=== PATIENT | female | born 1955 | race Caucasian/White ===

== ENCOUNTER → 2023-05-30 | Outpatient (CLI) | payer MEDICARE, OTHER ==
[~2023-05-30] MED LIST: ISOVUE-370 76% 100ML VIAL As Ordered ONE
== END ==
LOC: M RAD 07:52
PROVIDERS: ATTEND Urology
DX: C67.8 Malignant neoplasm of overlapping sites of bladder (principal); J44.9 Chronic obstructive pulmonary disease, unspecified; K76.0 Fatty (change of) liver, not elsewhere classified
CPT/HCPCS: 71260; Q9967

== ENCOUNTER 2023-07-29 06:06 | Inpatient (IN) | payer MEDICARE, OTHER ==
[2023-07-29] VITALS (16 sets, daily range): BP systolic 98–108; BP diastolic 62–71; TEMP 96.6–97.7; O2SAT 3–93
[~2023-07-29] VITALS: Ht 167.6 cm; Wt 106.2 kg
[~2023-07-29 06:06] MED LIST changes: +ADV100INH INH; +ALBU6.7H6 INH; +B-12100010 PO; +HEPARIN SOD (PORCINE) 5000UNITS/ML 1ML VIAL/SYRINGE SQ ONE; -ISOVUE-370 76% 100ML VIAL As Ordered ONE; +MULT-90 PO; +SUDA240T2 PO; +VITA500C24 PO; +ceFAZolin SOD 2 GM in IV 1 EA IV ONE; +metroNIDAZOLE 500 MG in IV 1 EA IV ONE
[2023-07-29] MEDS ORDERED: HOME MED LIST COMPLETE! XX SCH (06:45)
[2023-07-29] MEDS ORDERED: dexmedeTOMIDine (4MCG/ML)200MCG/50ML BTL (PRECEDEX) As Ordered ONE (07:31)
[2023-07-29] MEDS ORDERED: LIDOCAINE 2% 100MG/5ML SDV (FOR ANES.) As Ordered ONE (07:31)
[2023-07-29] MEDS ORDERED: propofoL 200 MG/20 ML VIAL As Ordered ONE (07:31)
[2023-07-29] MEDS ORDERED: ONDANSETRON 4MG 2ML VIAL As Ordered ONE (07:31)
[2023-07-29] MEDS ORDERED: ROCURONIUM BROMIDE 50MG/5ML VIAL As Ordered ONE ×4 (07:31→11:04)
[2023-07-29] MEDS ORDERED: fentaNYL 250 MCG/5 ML INJECTION As Ordered ONE (07:32)
[2023-07-29] MEDS ORDERED: MIDAZOLAM INJ 2MG/2ML VIAL As Ordered ONE (07:35)
[2023-07-29] MEDS ORDERED: LACRILUBE (AKWA TEARS) OPHTH OINT 3.5GM As Ordered ONE (08:00)
[2023-07-29] MEDS ORDERED: HYDROmorphone HCL 2MG/ML 1ML VIAL As Ordered ONE (09:21)
[2023-07-29] MEDS ORDERED: SUGAMMADEX SODIUM 500 MG/5 ML VIAL (BRIDION) As Ordered ONE (09:21)
[2023-07-29] MEDS ORDERED: ePHEDrine SULFATE 25 MG/5 ML(5MG/ML) SYRINGE As Ordered ONE (09:54)
[2023-07-29] MEDS ORDERED: PHENYLephrine 500MCG 5ML (100MCG/ML) SYRINGE As Ordered ONE ×2 (09:54→10:41)
[2023-07-29] MEDS ORDERED: ALBUTEROL 6.7GM INHALER **FOR ANES. CART/OMNICELL ONLY As Ordered ONE (10:56)
[2023-07-29] MEDS ORDERED: LIDOCAINE 5% OINT 30GM TUBE As Ordered ONE (11:55)
[2023-07-29] MEDS ORDERED: ceFAZolin 2 GM/D5W 50 ML IV BAG As Ordered ONE (12:07)
[2023-07-29] MEDS ORDERED: fentaNYL 100 MCG/2 ML INJECTION IV PRN (12:15)
[2023-07-29] MEDS ORDERED: ONDANSETRON 4MG 2ML VIAL IV PRN (12:15)
[2023-07-29] MEDS ORDERED: HYDROMORPHONE HCL 0.5 MG/ 0.5 ML SYRINGE IV PRN (12:15)
[2023-07-29] MEDS ORDERED: LR 1,000 ML IV SCH (12:15)
[2023-07-29] MEDS ORDERED: oxyCODONE 5MG TAB PO PRN (12:15)
[2023-07-29] MEDS ORDERED: METOCLOPRAMIDE INJ 10MG/2ML VIAL IV PRN (12:15)
[2023-07-29] MEDS ORDERED: D5W/0.45% SODIUM CHLORIDE 1,000 ML IV SCH (13:10)
[2023-07-29 13:57] LABS: HEMATOCRIT 46.6 % (36.0-47.0); MEAN CORPUSCULAR HEMOGLOBIN 31.3 pg (27.0-33.0); MEAN CORPUSCULAR HGB CONC 32.2 g/dl (32.0-36.5); MEAN CORPUSCULAR VOLUME 97.3 fl (80.0-96.0); PLATELET COUNT, AUTOMATED 284 10^3/uL (150-450); RED BLOOD COUNT 4.79 10^6/uL (4.00-5.40); WHITE BLOOD COUNT 15.7 10^3/uL (4.0-10.0)
[2023-07-29] MEDS: HEPARIN SOD (PORCINE) 5000UNITS/ML 1ML VIAL/SYRINGE SQ SCH ×2 (14:00→22:00)
[2023-07-29] MEDS ORDERED: PHENYLEPHRINE 10MG/ML 1ML VIAL IV STA (14:09)
[2023-07-29 14:12] LABS: ALBUMIN 2.7 G/DL (3.2-5.2); ALKALINE PHOSPHATASE 57 U/L (46-116); ALT/SGPT 19 U/L (7.0-40); AST/SGOT 20 U/L (<34); BILIRUBIN,TOTAL 0.4 MG/DL (0.3-1.2); BLOOD UREA NITROGEN 15 MG/DL (9-23); CARBON DIOXIDE LEVEL 26 MMOL/L (20-31); CHLORIDE LEVEL 105 MMOL/L (98-107); GLOMERULAR FILTRATION RATE > 60.0 (>45); GLUCOSE, FASTING 181 MG/DL (74-106); POTASSIUM SERUM 4.5 MMOL/L (3.5-5.1); SODIUM LEVEL 137 MMOL/L (136-145); TOTAL PROTEIN 5.6 G/DL (5.7-8.2)
[2023-07-29] MEDS ORDERED: ACETAMINOPHEN TAB 650MG DOSE (2X325MG) PO PRN (15:30)
[2023-07-29] MEDS ORDERED: NS 1,000 ML IV ONE ×2 (16:00→17:35)
[2023-07-29] MEDS: MIDODRINE 5 MG TAB PO SCH (16:13)
[2023-07-29] MEDS: ceFAZolin SOD 2 GM in IV 1 EA IV SCH ×2 (16:14→23:39)
[2023-07-29] MEDS: NORCO, ANEXSIA 5/325MG TABLET (HYDROcodone/ACETAMINOPHEN) PO PRN ×2 (16:15→22:22)
[2023-07-29] MEDS ORDERED: NS 1,000 ML IV SCH (17:00)
[2023-07-29 18:14] LABS: HEMATOCRIT 46.1 % (36.0-47.0); HEMOGLOBIN 14.8 g/dl (12.0-15.5); MEAN CORPUSCULAR HEMOGLOBIN 31.6 pg (27.0-33.0); MEAN CORPUSCULAR HGB CONC 32.1 g/dl (32.0-36.5); MEAN CORPUSCULAR VOLUME 98.3 fl (80.0-96.0); PLATELET COUNT, AUTOMATED 223 10^3/uL (150-450); RED BLOOD COUNT 4.69 10^6/uL (4.00-5.40); WHITE BLOOD COUNT 17.7 10^3/uL (4.0-10.0)
[2023-07-29 18:39] LABS: ALBUMIN 2.8 G/DL (3.2-5.2); ALKALINE PHOSPHATASE 53 U/L (46-116); ALT/SGPT 19 U/L (7.0-40); AST/SGOT 20 U/L (<34); BILIRUBIN,TOTAL 0.5 MG/DL (0.3-1.2); BLOOD UREA NITROGEN 14 MG/DL (9-23); CARBON DIOXIDE LEVEL 23 MMOL/L (20-31); CHLORIDE LEVEL 108 MMOL/L (98-107); CREATININE FOR GFR 0.75 MG/DL (0.55-1.30); GLOMERULAR FILTRATION RATE > 60.0 (>45); GLUCOSE, FASTING 173 MG/DL (74-106); POTASSIUM SERUM 5.1 MMOL/L (3.5-5.1); SODIUM LEVEL 138 MMOL/L (136-145); TOTAL PROTEIN 5.7 G/DL (5.7-8.2)
[2023-07-29] MEDS: D5W/0.45% SODIUM CHLORIDE 1,000 ML IV SCH (20:00)
[2023-07-29] MEDS ORDERED: SENOKOT S TAB PO SCH (21:00)
[2023-07-30] VITALS (27 sets, daily range): BP systolic 101–118; BP diastolic 59–72; TEMP 96.9–98.3; O2SAT 4–97
[2023-07-30 00:18] LABS: HEMATOCRIT 41.6 % (36.0-47.0); HEMOGLOBIN 13.6 g/dl (12.0-15.5)
[2023-07-30] MEDS: D5W/0.45% SODIUM CHLORIDE 1,000 ML IV SCH ×2 (04:48→14:38)
[2023-07-30] MEDS: NORCO, ANEXSIA 5/325MG TABLET (HYDROcodone/ACETAMINOPHEN) PO PRN (04:50)
[2023-07-30] MEDS: HEPARIN SOD (PORCINE) 5000UNITS/ML 1ML VIAL/SYRINGE SQ SCH ×3 (06:00→20:18)
[2023-07-30 06:36] LABS: BASO % 0.2 % (0.0-1.0); HEMATOCRIT 40.4 % (36.0-47.0); LYMPH # 1.2 10^3/uL (1.5-5.0); LYMPH % 10.2 % (24.0-44.0); MEAN CORPUSCULAR HEMOGLOBIN 31.4 pg (27.0-33.0); MEAN CORPUSCULAR HGB CONC 32.2 g/dl (32.0-36.5); MEAN CORPUSCULAR VOLUME 97.6 fl (80.0-96.0); MONO % 8.8 % (2.0-8.0); NEUTROPHILS # 9.3 10^3/uL (1.5-8.5); NEUTROPHILS % 80.5 % (36.0-66.0); PLATELET COUNT, AUTOMATED 233 10^3/uL (150-450); RED BLOOD COUNT 4.14 10^6/uL (4.00-5.40); WHITE BLOOD COUNT 11.6 10^3/uL (4.0-10.0)
[2023-07-30 07:04] LABS: ALBUMIN 2.5 G/DL (3.2-5.2); ALKALINE PHOSPHATASE 46 U/L (46-116); ALT/SGPT 13 U/L (7.0-40); AST/SGOT 18 U/L (<34); BILIRUBIN,TOTAL 0.4 MG/DL (0.3-1.2); BLOOD UREA NITROGEN 17 MG/DL (9-23); CALCIUM LEVEL 7.5 MG/DL (8.3-10.6); CARBON DIOXIDE LEVEL 25 MMOL/L (20-31); CHLORIDE LEVEL 106 MMOL/L (98-107); CREATININE FOR GFR 0.98 MG/DL (0.55-1.30); GLOMERULAR FILTRATION RATE > 60.0 (>45); GLUCOSE, FASTING 148 MG/DL (74-106); POTASSIUM SERUM 5.1 MMOL/L (3.5-5.1); SODIUM LEVEL 138 MMOL/L (136-145); TOTAL PROTEIN 5.2 G/DL (5.7-8.2)
[2023-07-30] MEDS: MIDODRINE 5 MG TAB PO SCH ×3 (08:00→16:00)
[2023-07-30] MEDS: ADVAIR HFA 45/21MCG INHALER INH SCH ×2 (08:08→20:00)
[2023-07-30] MEDS ORDERED: MIRALAX *UNIT DOSE* 17GM PACKET PO SCH (09:00)
[2023-07-30] MEDS: ceFAZolin SOD 2 GM in IV 1 EA IV SCH ×2 (09:21→16:37)
[2023-07-30] MEDS: ALBUTEROL 90 MCG/ACT 8GM HFA INHALER INH PRN (11:49)
[2023-07-30] MEDS: BISACODYL 5MG TAB PO SCH (14:17)
[2023-07-30] MEDS: CHLORASEPTIC SPRAY MT PRN ×2 (14:17→20:19)
[2023-07-30] MEDS: MORPHINE 2 MG/ML 1ML VIAL IV PRN (17:39)
[2023-07-30] MEDS: DOCUSATE SODIUM 100MG CAPSULE PO SCH (20:18)
[2023-07-31] VITALS (28 sets, daily range): BP systolic 112–135; BP diastolic 65–80; TEMP 97.3–98.3; O2SAT 4–97
[2023-07-31] MEDS: ceFAZolin SOD 2 GM in IV 1 EA IV SCH ×2 (00:14→08:02)
[2023-07-31] MEDS: D5W/0.45% SODIUM CHLORIDE 1,000 ML IV SCH ×2 (03:41→14:21)
[2023-07-31 04:44] LABS: BASO % 0.2 % (0.0-1.0); EOS # 0.2 10^3/uL (0.0-0.5); EOS % 1.2 % (0.0-3.0); HEMATOCRIT 36.2 % (36.0-47.0); HEMOGLOBIN 11.6 g/dl (12.0-15.5); LYMPH # 0.9 10^3/uL (1.5-5.0); LYMPH % 7.7 % (24.0-44.0); MEAN CORPUSCULAR HEMOGLOBIN 30.9 pg (27.0-33.0); MEAN CORPUSCULAR VOLUME 96.3 fl (80.0-96.0); MONO # 0.9 10^3/uL (0.0-0.8); NEUTROPHILS # 10.2 10^3/uL (1.5-8.5); NEUTROPHILS % 83.6 % (36.0-66.0); PLATELET COUNT, AUTOMATED 209 10^3/uL (150-450); RED BLOOD COUNT 3.76 10^6/uL (4.00-5.40); WHITE BLOOD COUNT 12.2 10^3/uL (4.0-10.0)
[2023-07-31 05:10] LABS: CALCIUM LEVEL 7.6 MG/DL (8.3-10.6); CREATININE FOR GFR 1.32 MG/DL (0.55-1.30); GLOMERULAR FILTRATION RATE 42.7 (>45); POTASSIUM SERUM 4.5 MMOL/L (3.5-5.1)
[2023-07-31] MEDS ORDERED: NS 500 ML IV ONE (06:55)
[2023-07-31] MEDS: ADVAIR HFA 45/21MCG INHALER INH SCH ×2 (07:54→19:21)
[2023-07-31] MEDS: HEPARIN SOD (PORCINE) 5000UNITS/ML 1ML VIAL/SYRINGE SQ SCH ×2 (08:03→21:12)
[2023-07-31] MEDS: DOCUSATE SODIUM 100MG CAPSULE PO SCH ×2 (08:03→21:11)
[2023-07-31] MEDS: BISACODYL 5MG TAB PO SCH (08:03)
[2023-07-31] MEDS: NORCO, ANEXSIA 5/325MG TABLET (HYDROcodone/ACETAMINOPHEN) PO PRN ×3 (09:08→23:35)
[2023-07-31] MEDS: ALBUTEROL SULFATE 2.5MG/0.5ML INH NEB SOLN NEB SCH ×2 (16:00→19:21)
[2023-07-31] MEDS: CHLORASEPTIC SPRAY MT PRN ×2 (16:58→23:35)
[2023-07-31] MEDS: ONDANSETRON 4MG 2ML VIAL IV PRN (23:34)
[2023-08-01] VITALS (26 sets, daily range): BP systolic 111–124; BP diastolic 63–84; TEMP 97.4–98.8; O2SAT 90–95
[2023-08-01 05:48] LABS: BASO % 0.3 % (0.0-1.0); EOS # 0.3 10^3/uL (0.0-0.5); EOS % 3.1 % (0.0-3.0); HEMATOCRIT 35.9 % (36.0-47.0); HEMOGLOBIN 11.4 g/dl (12.0-15.5); LYMPH # 0.9 10^3/uL (1.5-5.0); LYMPH % 8.1 % (24.0-44.0); MEAN CORPUSCULAR HEMOGLOBIN 31.2 pg (27.0-33.0); MEAN CORPUSCULAR HGB CONC 31.8 g/dl (32.0-36.5); MEAN CORPUSCULAR VOLUME 98.4 fl (80.0-96.0); MONO # 0.7 10^3/uL (0.0-0.8); MONO % 6.8 % (2.0-8.0); NEUTROPHILS # 8.7 10^3/uL (1.5-8.5); NEUTROPHILS % 81.4 % (36.0-66.0); PLATELET COUNT, AUTOMATED 230 10^3/uL (150-450); RED BLOOD COUNT 3.65 10^6/uL (4.00-5.40); WHITE BLOOD COUNT 10.7 10^3/uL (4.0-10.0)
[2023-08-01 05:49] LABS: BLOOD UREA NITROGEN 18 MG/DL (9-23); CALCIUM LEVEL 7.9 MG/DL (8.3-10.6); CARBON DIOXIDE LEVEL 33 MMOL/L (20-31); CHLORIDE LEVEL 100 MMOL/L (98-107); CREATININE FOR GFR 0.78 MG/DL (0.55-1.30); GLOMERULAR FILTRATION RATE > 60.0 (>45); GLUCOSE, FASTING 122 MG/DL (74-106); POTASSIUM SERUM 4.3 MMOL/L (3.5-5.1); SODIUM LEVEL 138 MMOL/L (136-145)
[2023-08-01] MEDS: D5W/0.45% SODIUM CHLORIDE 1,000 ML IV SCH (05:55)
[2023-08-01] MEDS: ALBUTEROL SULFATE 2.5MG/0.5ML INH NEB SOLN NEB SCH ×2 (08:39→16:00)
[2023-08-01] MEDS: ADVAIR HFA 45/21MCG INHALER INH SCH ×2 (08:39→21:06)
[2023-08-01] MEDS: ONDANSETRON 4MG 2ML VIAL IV PRN (08:58)
[2023-08-01] MEDS ORDERED: GLUCAGON INJ 1MG VIAL SC PRN (09:10)
[2023-08-01] MEDS ORDERED: DEXTROSE 50% 50ML SYRINGE IV PRN (09:10)
[2023-08-01] MEDS ORDERED: GLUCOSE 4GM CHEW TABLET PO PRN (09:10)
[2023-08-01] MEDS: MORPHINE 2 MG/ML 1ML VIAL IV PRN ×3 (09:18→22:29)
[2023-08-01] MEDS: PANTOPRAZOLE 40MG VIAL IV SCH ×2 (09:49→20:02)
[2023-08-01] MEDS: LR 1,000 ML IV SCH ×3 (09:50→23:35)
[2023-08-01] MEDS: DOCUSATE SODIUM 100MG CAPSULE PO SCH ×2 (09:50→20:03)
[2023-08-01] MEDS: CHLORASEPTIC SPRAY MT PRN (12:09)
[2023-08-01] MEDS: BISACODYL 10MG SUPP PR SCH (16:26)
[2023-08-01] MEDS: ALBUTEROL 90 MCG/ACT 8GM HFA INHALER INH PRN (16:31)
[2023-08-01 16:38] LABS: HEMATOCRIT 34.5 % (36.0-47.0); HEMOGLOBIN 11.2 g/dl (12.0-15.5); MEAN CORPUSCULAR HEMOGLOBIN 31.7 pg (27.0-33.0); MEAN CORPUSCULAR HGB CONC 32.5 g/dl (32.0-36.5); MEAN CORPUSCULAR VOLUME 97.7 fl (80.0-96.0); PLATELET COUNT, AUTOMATED 247 10^3/uL (150-450); RED BLOOD COUNT 3.53 10^6/uL (4.00-5.40); WHITE BLOOD COUNT 11.5 10^3/uL (4.0-10.0)
[2023-08-01] MEDS ORDERED: ACETAMINOPHEN 650MG SUPP PR PRN (19:45)
[2023-08-01] MEDS: METOCLOPRAMIDE INJ 10MG/2ML VIAL IV SCH (20:02)
[2023-08-02] VITALS (22 sets, daily range): BP systolic 112–124; BP diastolic 66–75; TEMP 97.1–97.9; O2SAT 4–99
[2023-08-02] MEDS: ALBUTEROL SULFATE 2.5MG/0.5ML INH NEB SOLN NEB SCH ×3 (00:52→16:48)
[2023-08-02] MEDS: MORPHINE 2 MG/ML 1ML VIAL IV PRN ×2 (04:06→08:44)
[2023-08-02] MEDS: CHLORASEPTIC SPRAY MT PRN ×2 (04:06→08:37)
[2023-08-02 05:18] LABS: BASO % 0.2 % (0.0-1.0); EOS # 0.4 10^3/uL (0.0-0.5); EOS % 3.7 % (0.0-3.0); HEMATOCRIT 32.5 % (36.0-47.0); HEMOGLOBIN 10.6 g/dl (12.0-15.5); MEAN CORPUSCULAR HEMOGLOBIN 32.2 pg (27.0-33.0); MEAN CORPUSCULAR HGB CONC 32.6 g/dl (32.0-36.5); MEAN CORPUSCULAR VOLUME 98.8 fl (80.0-96.0); MONO # 0.9 10^3/uL (0.0-0.8); MONO % 7.9 % (2.0-8.0); NEUTROPHILS # 8.9 10^3/uL (1.5-8.5); NEUTROPHILS % 78.9 % (36.0-66.0); PLATELET COUNT, AUTOMATED 228 10^3/uL (150-450); RED BLOOD COUNT 3.29 10^6/uL (4.00-5.40); WHITE BLOOD COUNT 11.2 10^3/uL (4.0-10.0)
[2023-08-02 05:31] LABS: BLOOD UREA NITROGEN 18 MG/DL (9-23); CALCIUM LEVEL 8.1 MG/DL (8.3-10.6); CARBON DIOXIDE LEVEL 33 MMOL/L (20-31); CHLORIDE LEVEL 100 MMOL/L (98-107); CREATININE FOR GFR 0.92 MG/DL (0.55-1.30); GLOMERULAR FILTRATION RATE > 60.0 (>45); GLUCOSE, FASTING 98 MG/DL (74-106); POTASSIUM SERUM 4.2 MMOL/L (3.5-5.1); SODIUM LEVEL 138 MMOL/L (136-145)
[2023-08-02] MEDS: LR 1,000 ML IV SCH ×3 (06:42→18:26)
[2023-08-02] MEDS: BISACODYL 10MG SUPP PR SCH (08:36)
[2023-08-02] MEDS: PANTOPRAZOLE 40MG VIAL IV SCH ×2 (08:36→21:00)
[2023-08-02] MEDS: DOCUSATE SODIUM 100MG CAPSULE PO SCH ×2 (08:36→21:00)
[2023-08-02] MEDS: METOCLOPRAMIDE INJ 10MG/2ML VIAL IV SCH ×2 (08:36→21:01)
[2023-08-02] MEDS: ADVAIR HFA 45/21MCG INHALER INH SCH ×2 (08:54→21:44)
[2023-08-02] MEDS: NORCO, ANEXSIA 5/325MG TABLET (HYDROcodone/ACETAMINOPHEN) PO PRN (21:00)
[2023-08-03] VITALS (12 sets, daily range): BP systolic 108–130; BP diastolic 66–80; TEMP 97.8–98.8; O2SAT 90–98
[2023-08-03] MEDS: LR 1,000 ML IV SCH (05:17)
[2023-08-03 07:14] LABS: BASO % 0.3 % (0.0-1.0); EOS # 0.6 10^3/uL (0.0-0.5); EOS % 6.6 % (0.0-3.0); HEMATOCRIT 32.9 % (36.0-47.0); HEMOGLOBIN 10.3 g/dl (12.0-15.5); LYMPH # 1.2 10^3/uL (1.5-5.0); LYMPH % 12.2 % (24.0-44.0); MEAN CORPUSCULAR HEMOGLOBIN 30.8 pg (27.0-33.0); MEAN CORPUSCULAR HGB CONC 31.3 g/dl (32.0-36.5); MEAN CORPUSCULAR VOLUME 98.5 fl (80.0-96.0); MONO # 0.9 10^3/uL (0.0-0.8); MONO % 9.8 % (2.0-8.0); NEUTROPHILS # 6.8 10^3/uL (1.5-8.5); NEUTROPHILS % 70.8 % (36.0-66.0); PLATELET COUNT, AUTOMATED 263 10^3/uL (150-450); RED BLOOD COUNT 3.34 10^6/uL (4.00-5.40); WHITE BLOOD COUNT 9.6 10^3/uL (4.0-10.0)
[2023-08-03 07:34] LABS: BLOOD UREA NITROGEN 13 MG/DL (9-23); CALCIUM LEVEL 8.3 MG/DL (8.3-10.6); CARBON DIOXIDE LEVEL 32 MMOL/L (20-31); CHLORIDE LEVEL 100 MMOL/L (98-107); CREATININE FOR GFR 0.57 MG/DL (0.55-1.30); GLOMERULAR FILTRATION RATE > 60.0 (>45); GLUCOSE, FASTING 101 MG/DL (74-106); SODIUM LEVEL 138 MMOL/L (136-145)
[2023-08-03] MEDS: ALBUTEROL SULFATE 2.5MG/0.5ML INH NEB SOLN NEB SCH ×3 (08:00→15:33)
[2023-08-03] MEDS: DOCUSATE SODIUM 100MG CAPSULE PO SCH ×2 (09:27→20:26)
[2023-08-03] MEDS: METOCLOPRAMIDE INJ 10MG/2ML VIAL IV SCH ×2 (09:27→20:26)
[2023-08-03] MEDS: PANTOPRAZOLE 40MG VIAL IV SCH ×2 (09:27→20:27)
[2023-08-03] MEDS: BISACODYL 10MG SUPP PR SCH (09:27)
[2023-08-03] MEDS: NORCO, ANEXSIA 5/325MG TABLET (HYDROcodone/ACETAMINOPHEN) PO PRN ×2 (09:32→20:27)
[2023-08-03] MEDS: ADVAIR HFA 45/21MCG INHALER INH SCH ×2 (09:37→21:16)
[2023-08-03] MEDS: ALBUTEROL 90 MCG/ACT 8GM HFA INHALER INH PRN (15:32)
[2023-08-04 06:00] VITALS: BP 112/65; TEMP 97.5; O2SAT 94
[2023-08-04 07:20] LABS: BASO % 0.4 % (0.0-1.0); EOS # 0.6 10^3/uL (0.0-0.5); HEMATOCRIT 34.4 % (36.0-47.0); LYMPH # 1.1 10^3/uL (1.5-5.0); LYMPH % 13.4 % (24.0-44.0); MEAN CORPUSCULAR HEMOGLOBIN 31.1 pg (27.0-33.0); MEAN CORPUSCULAR VOLUME 97.2 fl (80.0-96.0); MONO # 0.7 10^3/uL (0.0-0.8); MONO % 8.4 % (2.0-8.0); NEUTROPHILS # 5.5 10^3/uL (1.5-8.5); NEUTROPHILS % 69.4 % (36.0-66.0); PLATELET COUNT, AUTOMATED 308 10^3/uL (150-450); RED BLOOD COUNT 3.54 10^6/uL (4.00-5.40)
[2023-08-04 07:32] LABS: BLOOD UREA NITROGEN 13 MG/DL (9-23); CALCIUM LEVEL 8.4 MG/DL (8.3-10.6); CARBON DIOXIDE LEVEL 31 MMOL/L (20-31); CHLORIDE LEVEL 99 MMOL/L (98-107); CREATININE FOR GFR 0.62 MG/DL (0.55-1.30); GLOMERULAR FILTRATION RATE > 60.0 (>45); GLUCOSE, FASTING 115 MG/DL (74-106); POTASSIUM SERUM 3.9 MMOL/L (3.5-5.1); SODIUM LEVEL 136 MMOL/L (136-145)
[2023-08-04] MEDS: PANTOPRAZOLE 40MG VIAL IV SCH ×2 (07:59→21:24)
[2023-08-04] MEDS: METOCLOPRAMIDE INJ 10MG/2ML VIAL IV SCH ×2 (07:59→21:24)
[2023-08-04] MEDS: BISACODYL 10MG SUPP PR SCH (08:00)
[2023-08-04] MEDS: DOCUSATE SODIUM 100MG CAPSULE PO SCH ×2 (08:00→20:35)
[2023-08-04] MEDS: ALBUTEROL SULFATE 2.5MG/0.5ML INH NEB SOLN NEB SCH ×3 (08:00→14:17)
[2023-08-04 09:06] LABS: CREATININE BF 0.6 MG/DL (NOT ESTABLISHED); SOURCE, BODY FLUID CREATININE PERITONEAL
[2023-08-04] MEDS: ADVAIR HFA 45/21MCG INHALER INH SCH ×2 (11:39→20:08)
[2023-08-04] MEDS ORDERED: ACETAMINOPHEN TAB 650MG DOSE (2X325MG) PO PRN (12:35)
[2023-08-04 14:00] VITALS: BP 121/73; TEMP 97.6; O2SAT 93
[2023-08-04] MEDS: ALBUTEROL 90 MCG/ACT 8GM HFA INHALER INH PRN (14:15)
[2023-08-04] MEDS: NORCO, ANEXSIA 5/325MG TABLET (HYDROcodone/ACETAMINOPHEN) PO PRN (17:44)
[2023-08-04 21:35] VITALS: BP 113/71; TEMP 98.3; O2SAT 91
[2023-08-05 05:37] VITALS: BP 117/71; TEMP 97.8; O2SAT 93
[2023-08-05 06:25] LABS: BASO % 0.4 % (0.0-1.0); EOS # 0.4 10^3/uL (0.0-0.5); EOS % 5.4 % (0.0-3.0); HEMATOCRIT 32.6 % (36.0-47.0); HEMOGLOBIN 10.8 g/dl (12.0-15.5); LYMPH # 0.9 10^3/uL (1.5-5.0); MEAN CORPUSCULAR HEMOGLOBIN 31.7 pg (27.0-33.0); MEAN CORPUSCULAR HGB CONC 33.1 g/dl (32.0-36.5); MEAN CORPUSCULAR VOLUME 95.6 fl (80.0-96.0); MONO # 0.7 10^3/uL (0.0-0.8); MONO % 8.6 % (2.0-8.0); NEUTROPHILS # 5.9 10^3/uL (1.5-8.5); NEUTROPHILS % 74.2 % (36.0-66.0); PLATELET COUNT, AUTOMATED 353 10^3/uL (150-450); RED BLOOD COUNT 3.41 10^6/uL (4.00-5.40); WHITE BLOOD COUNT 7.9 10^3/uL (4.0-10.0)
[2023-08-05 06:54] LABS: BLOOD UREA NITROGEN 14 MG/DL (9-23); CALCIUM LEVEL 8.3 MG/DL (8.3-10.6); CARBON DIOXIDE LEVEL 29 MMOL/L (20-31); CHLORIDE LEVEL 98 MMOL/L (98-107); CREATININE FOR GFR 0.56 MG/DL (0.55-1.30); GLOMERULAR FILTRATION RATE > 60.0 (>45); GLUCOSE, FASTING 103 MG/DL (74-106); POTASSIUM SERUM 4.1 MMOL/L (3.5-5.1); SODIUM LEVEL 134 MMOL/L (136-145)
[2023-08-05] MEDS: DOCUSATE SODIUM 100MG CAPSULE PO SCH ×2 (07:26→19:43)
[2023-08-05] MEDS: BISACODYL 10MG SUPP PR SCH (07:27)
[2023-08-05] MEDS: ALBUTEROL SULFATE 2.5MG/0.5ML INH NEB SOLN NEB SCH ×4 (08:00→23:53)
[2023-08-05] MEDS: METOCLOPRAMIDE INJ 10MG/2ML VIAL IV SCH ×2 (08:19→19:54)
[2023-08-05] MEDS: PANTOPRAZOLE 40MG VIAL IV SCH ×2 (08:19→19:54)
[2023-08-05] MEDS ORDERED: FUROSEMIDE 20MG/2ML VIAL IV ONE ×2 (08:45→15:00)
[2023-08-05] MEDS: NORCO, ANEXSIA 5/325MG TABLET (HYDROcodone/ACETAMINOPHEN) PO PRN ×2 (09:37→18:05)
[2023-08-05] MEDS: ADVAIR HFA 45/21MCG INHALER INH SCH ×2 (09:58→20:23)
[2023-08-05 13:47] VITALS: BP 113/70; TEMP 97.7; O2SAT 93
[2023-08-05] MEDS: ALBUTEROL 90 MCG/ACT 8GM HFA INHALER INH PRN (15:44)
[2023-08-05 20:03] VITALS: BP 111/64; TEMP 97.8; O2SAT 93
[2023-08-06 05:00] VITALS: BP 108/69; TEMP 97.9; O2SAT 94
[2023-08-06] MEDS: ADVAIR HFA 45/21MCG INHALER INH SCH ×2 (07:35→20:59)
[2023-08-06] MEDS: ALBUTEROL SULFATE 2.5MG/0.5ML INH NEB SOLN NEB SCH ×2 (07:37→15:15)
[2023-08-06 07:38] VITALS: O2SAT 92
[2023-08-06] MEDS: DOCUSATE SODIUM 100MG CAPSULE PO SCH ×2 (08:06→20:00)
[2023-08-06] MEDS: BISACODYL 10MG SUPP PR SCH (08:06)
[2023-08-06] MEDS: METOCLOPRAMIDE INJ 10MG/2ML VIAL IV SCH (08:16)
[2023-08-06] MEDS: PANTOPRAZOLE 40MG VIAL IV SCH (08:16)
[2023-08-06] MEDS: NORCO, ANEXSIA 5/325MG TABLET (HYDROcodone/ACETAMINOPHEN) PO PRN ×2 (08:17→16:52)
[2023-08-06 08:25] LABS: HEMATOCRIT 34.5 % (36.0-47.0); HEMOGLOBIN 11.4 g/dl (12.0-15.5); MEAN CORPUSCULAR HEMOGLOBIN 31.7 pg (27.0-33.0); MEAN CORPUSCULAR VOLUME 95.8 fl (80.0-96.0); PLATELET COUNT, AUTOMATED 395 10^3/uL (150-450); WHITE BLOOD COUNT 7.4 10^3/uL (4.0-10.0)
[2023-08-06 08:46] LABS: BLOOD UREA NITROGEN 15 MG/DL (9-23); CALCIUM LEVEL 8.7 MG/DL (8.3-10.6); CARBON DIOXIDE LEVEL 29 MMOL/L (20-31); CHLORIDE LEVEL 97 MMOL/L (98-107); CREATININE FOR GFR 0.62 MG/DL (0.55-1.30); GLOMERULAR FILTRATION RATE > 60.0 (>45); GLUCOSE, FASTING 90 MG/DL (74-106); POTASSIUM SERUM 4.1 MMOL/L (3.5-5.1); SODIUM LEVEL 134 MMOL/L (136-145)
[2023-08-06] MEDS: ALBUTEROL 90 MCG/ACT 8GM HFA INHALER INH PRN (15:15)
[2023-08-06 15:18] VITALS: O2SAT 92
[2023-08-06 17:40] LABS: CREATININE BF 0.7 MG/DL (NOT ESTABLISHED); SOURCE, BODY FLUID CREATININE PERITONEAL
[2023-08-06 20:00] VITALS: BP 101/65; TEMP 97.9; O2SAT 93
[2023-08-07 04:00] VITALS: BP 127/70; TEMP 98; O2SAT 97
[2023-08-07] MEDS: NORCO, ANEXSIA 5/325MG TABLET (HYDROcodone/ACETAMINOPHEN) PO PRN ×3 (05:31→22:37)
[2023-08-07 06:05] LABS: HEMATOCRIT 35.2 % (36.0-47.0); HEMOGLOBIN 11.7 g/dl (12.0-15.5); MEAN CORPUSCULAR HEMOGLOBIN 31.5 pg (27.0-33.0); MEAN CORPUSCULAR HGB CONC 33.2 g/dl (32.0-36.5); MEAN CORPUSCULAR VOLUME 94.9 fl (80.0-96.0); PLATELET COUNT, AUTOMATED 431 10^3/uL (150-450); RED BLOOD COUNT 3.71 10^6/uL (4.00-5.40); WHITE BLOOD COUNT 8.7 10^3/uL (4.0-10.0)
[2023-08-07 06:28] LABS: BLOOD UREA NITROGEN 18 MG/DL (9-23); CALCIUM LEVEL 8.4 MG/DL (8.3-10.6); CARBON DIOXIDE LEVEL 26 MMOL/L (20-31); CHLORIDE LEVEL 99 MMOL/L (98-107); CREATININE FOR GFR 0.68 MG/DL (0.55-1.30); GLOMERULAR FILTRATION RATE > 60.0 (>45); GLUCOSE, FASTING 104 MG/DL (74-106); SODIUM LEVEL 134 MMOL/L (136-145)
[2023-08-07] MEDS: ALBUTEROL SULFATE 2.5MG/0.5ML INH NEB SOLN NEB SCH ×2 (08:00)
[2023-08-07] MEDS: DOCUSATE SODIUM 100MG CAPSULE PO SCH (08:37)
[2023-08-07] MEDS: PANTOPRAZOLE 40MG TAB (PROTONIX) PO SCH (08:37)
[2023-08-07 09:06] VITALS: O2SAT 89
[2023-08-07] MEDS: ADVAIR HFA 45/21MCG INHALER INH SCH ×2 (09:35→21:16)
[2023-08-07 14:07] VITALS: BP 104/67; TEMP 98; O2SAT 92
[2023-08-07] MEDS: LACTOBACILLUS ACIDOPHILUS CAP (BACID) PO SCH (17:13)
[2023-08-07 20:00] VITALS: BP 105/64; TEMP 97.5; O2SAT 94
[2023-08-08 06:00] VITALS: BP 128/66; TEMP 97.4; O2SAT 91
[2023-08-08 06:28] LABS: HEMATOCRIT 33.5 % (36.0-47.0); MEAN CORPUSCULAR HEMOGLOBIN 31.3 pg (27.0-33.0); MEAN CORPUSCULAR HGB CONC 32.8 g/dl (32.0-36.5); MEAN CORPUSCULAR VOLUME 95.2 fl (80.0-96.0); PLATELET COUNT, AUTOMATED 386 10^3/uL (150-450); RED BLOOD COUNT 3.52 10^6/uL (4.00-5.40); WHITE BLOOD COUNT 8.2 10^3/uL (4.0-10.0)
[2023-08-08 06:52] LABS: BLOOD UREA NITROGEN 16 MG/DL (9-23); CALCIUM LEVEL 7.7 MG/DL (8.3-10.6); CARBON DIOXIDE LEVEL 29 MMOL/L (20-31); CHLORIDE LEVEL 102 MMOL/L (98-107); CREATININE FOR GFR 0.71 MG/DL (0.55-1.30); GLOMERULAR FILTRATION RATE > 60.0 (>45); GLUCOSE, FASTING 103 MG/DL (74-106); POTASSIUM SERUM 3.8 MMOL/L (3.5-5.1); SODIUM LEVEL 136 MMOL/L (136-145)
[2023-08-08] MEDS: ADVAIR HFA 45/21MCG INHALER INH SCH ×2 (07:34→20:12)
[2023-08-08] MEDS: NORCO, ANEXSIA 5/325MG TABLET (HYDROcodone/ACETAMINOPHEN) PO PRN ×2 (08:29→17:19)
[2023-08-08] MEDS: PANTOPRAZOLE 40MG TAB (PROTONIX) PO SCH (08:29)
[2023-08-08] MEDS: LACTOBACILLUS ACIDOPHILUS CAP (BACID) PO SCH ×2 (08:29→17:19)
[2023-08-08] MEDS ORDERED: FUROSEMIDE 40MG/4ML VIAL IV ONE (11:00)
[2023-08-08] MEDS ORDERED: NORCO, ANEXSIA 5/325MG TABLET (HYDROcodone/ACETAMINOPHEN) PO PRN (12:50)
[2023-08-08] MEDS ORDERED: HYDR-3715 PO (12:55)
[2023-08-08 15:33] VITALS: BP 114/57; TEMP 97.5; O2SAT 92
[2023-08-08 16:25] VITALS: BP 107/71; TEMP 97.5; O2SAT 91
[2023-08-08 20:25] VITALS: BP 112/73; TEMP 97.9; O2SAT 90
[2023-08-09] MEDS: NORCO, ANEXSIA 5/325MG TABLET (HYDROcodone/ACETAMINOPHEN) PO PRN ×2 (04:34→12:37)
[2023-08-09 06:08] LABS: HEMOGLOBIN 11.2 g/dl (12.0-15.5); MEAN CORPUSCULAR HEMOGLOBIN 31.5 pg (27.0-33.0); MEAN CORPUSCULAR HGB CONC 32.9 g/dl (32.0-36.5); MEAN CORPUSCULAR VOLUME 95.5 fl (80.0-96.0); PLATELET COUNT, AUTOMATED 411 10^3/uL (150-450); RED BLOOD COUNT 3.56 10^6/uL (4.00-5.40); WHITE BLOOD COUNT 10.3 10^3/uL (4.0-10.0)
[2023-08-09 06:10] VITALS: BP 94/60; TEMP 97.3; O2SAT 94
[2023-08-09 06:26] LABS: BLOOD UREA NITROGEN 18 MG/DL (9-23); CARBON DIOXIDE LEVEL 26 MMOL/L (20-31); CHLORIDE LEVEL 100 MMOL/L (98-107); CREATININE FOR GFR 0.81 MG/DL (0.55-1.30); GLOMERULAR FILTRATION RATE > 60.0 (>45); GLUCOSE, FASTING 114 MG/DL (74-106); POTASSIUM SERUM 3.6 MMOL/L (3.5-5.1); SODIUM LEVEL 134 MMOL/L (136-145)
[2023-08-09] MEDS: LACTOBACILLUS ACIDOPHILUS CAP (BACID) PO SCH (08:37)
[2023-08-09] MEDS: PANTOPRAZOLE 40MG TAB (PROTONIX) PO SCH (08:37)
[2023-08-09] MEDS: ADVAIR HFA 45/21MCG INHALER INH SCH (09:05)
== END 2023-08-09 17:00 | disposition home health service (06) | DRG 654 ==
LOC: M OR 06:06 → M PCU 15:28 → M MS4PR 08-03 22:54 → M MS5PR 08-08 16:20
PROVIDERS: ADMIT Urology; ATTEND Internal Medicine Nephrology
PROC: 07BC4ZZ Excision of Pelvis Lymphatic, Percutaneous Endoscopic Approach (ICD-10-PCS; 2023-07-29)
PROC: 0T1847C Bypass Bilateral Ureters to Ileocutaneous with Autologous Tissue Substitute, Percutaneous Endoscopic Approach (ICD-10-PCS; 2023-07-29)
PROC: 0DBB4ZZ Excision of Ileum, Percutaneous Endoscopic Approach (ICD-10-PCS; 2023-07-29)
PROC: 8E0W4CZ Robotic Assisted Procedure of Trunk Region, Percutaneous Endoscopic Approach (ICD-10-PCS; 2023-07-29)
PROC: 0TTB4ZZ Resection of Bladder, Percutaneous Endoscopic Approach (ICD-10-PCS; principal; 2023-07-29 07:30)
DX: C67.9 Malignant neoplasm of bladder, unspecified (principal); D62 Acute posthemorrhagic anemia; N17.9 Acute kidney failure, unspecified; J44.9 Chronic obstructive pulmonary disease, unspecified; I95.9 Hypotension, unspecified; E66.9 Obesity, unspecified; Z68.37 Body mass index [BMI] 37.0-37.9, adult; R09.02 Hypoxemia; K29.60 Other gastritis without bleeding; Z88.5 Allergy status to narcotic agent; Z79.899 Other long term (current) drug therapy; Z88.8 Allergy status to other drugs, medicaments and biological substances; Z88.6 Allergy status to analgesic agent

== ENCOUNTER → 2023-08-20 | Outpatient (REF) | payer MEDICARE, OTHER ==
[~2023-08-20] MED LIST changes: -HEPARIN SOD (PORCINE) 5000UNITS/ML 1ML VIAL/SYRINGE SQ ONE; +HYDR-3715 PO; -ceFAZolin SOD 2 GM in IV 1 EA IV ONE; -metroNIDAZOLE 500 MG in IV 1 EA IV ONE
== END ==
LOC: M LABSMT 15:29
PROVIDERS: ATTEND Urology
DX: Z53.9 Procedure and treatment not carried out, unspecified reason (principal)

== ENCOUNTER → 2025-03-09 | Outpatient (CLI) | payer MEDICARE, OTHER ==
[~2025-03-09] MED LIST changes: -ADV100INH INH; +ADVA1AER8 INH
== END ==
LOC: M PLARAD 14:55
PROVIDERS: ATTEND Urology
DX: C67.8 Malignant neoplasm of overlapping sites of bladder (principal)
CPT/HCPCS: 78815; A9552